=== PATIENT | male | born 1950 | race Caucasian/White ===

== ENCOUNTER → 2016-08-23 | Outpatient (CLI) | payer OTHER ==
[~2016-08-23] MED LIST: ASPEC325 PO; ATOR10TA88 PO; DOCU-94 PO; METO50TA16 PO; NTRGSL/4 UT; OMEP20CA9 PO
[2016-08-23 12:41] LABS: CHOLESTEROL/HDL RATIO 2.6
[2016-08-23 13:03] LABS: ESTIMATED AVERAGE GLUCOSE 140 mg/dl; HA1C FLAG Normal (Normal)
== END | disposition home or self-care (01) ==
LOC: C.LABPVFM 09:58
PROVIDERS: ATTEND Nurse Practitioner Family
DX: Z11.59 Encounter for screening for other viral diseases (principal); E11.9 Type 2 diabetes mellitus without complications; E78.00 Pure hypercholesterolemia, unspecified

== ENCOUNTER → 2016-11-21 | Outpatient (CLI) | payer OTHER ==
[~2016-11-21] MED LIST changes: +ATOR10TA82 PO; -ATOR10TA88 PO
[2016-11-22 06:22] LABS: ESTIMATED AVERAGE GLUCOSE 143 mg/dl; HA1C FLAG Normal (Normal)
== END | disposition home or self-care (01) ==
LOC: C.LABPVFM 11:10
PROVIDERS: ATTEND Nurse Practitioner Family
DX: E11.9 Type 2 diabetes mellitus without complications (principal)

== ENCOUNTER → 2017-09-06 | Outpatient (CLI) | payer OTHER ==
[2017-09-06 18:02] LABS: ALT/SGPT 36 U/L (12-78); AST/SGOT 22 U/L (15-37); BLOOD UREA NITROGEN 14 mg/dl (7-18); CALCIUM 8.9 mg/dl (8.5-10.1); CARBON DIOXIDE 28 mmol/L (21-32); CHOLESTEROL 137 mg/dl (0-200); CREATININE 0.88 mg/dl (0.60-1.40); GLUCOSE 98 mg/dl (70-99); SODIUM 139 mmol/L (136-145)
[2017-09-06 18:07] LABS: ALKALINE PHOSPHATASE 55 U/L (45-117); LDL CHOLESTEROL CALCULATED 60 mg/dl; TOTAL PROTEIN 7.2 gm/dl (6.4-8.2)
[2017-09-07 06:56] LABS: HEMOGLOBIN A1C 6.5 % (4.5-5.6)
== END | disposition home or self-care (01) ==
LOC: C.LABPVFM 18:11
PROVIDERS: ATTEND Nurse Practitioner Family
DX: R25.2 Cramp and spasm (principal); E78.00 Pure hypercholesterolemia, unspecified; E11.9 Type 2 diabetes mellitus without complications

== ENCOUNTER → 2017-09-13 | Outpatient (CLI) | payer OTHER ==
--- NOTE | 2017-09-13 08:43 | DIAGNOSTIC IMAGING REPORT ---
ULTRASOUND EXAM AAA SCREEN CLINICAL HISTORY: Z87.891 Former tobacco use area screening examination COMPARISON STUDY: CT scan performed April 2013 FINDINGS: The proximal abdominal aorta measures 25 x 24 mm. The mid abdominal aorta measures 20 x 19 mm. The distal abdominal aorta measures 21 x 19 mm. The right iliac measures 13 x 9 mm. The left iliac measures 10 x 11 mm. IMPRESSION: No evidence of abdominal aortic aneurysm. Electronically signed by: Troy Manzo M.D. 09/13/2017 8:41 AM Dictated Date/Time: 09/13/2017 8:39 AM
== END | disposition home or self-care (01) ==
LOC: C.ULTR 08:03
PROVIDERS: ATTEND Nurse Practitioner Family
DX: Z87.891 Personal history of nicotine dependence (principal)